=== PATIENT | male | born 1975 | race Hispanic/Latino ===

== ENCOUNTER 2016-08-16 05:21 | Emergency (ER) | payer SELFPAY ==
[~2016-08-16] VITALS: Ht 182.9 cm; Wt 82.6 kg
[~2016-08-16 05:21] MED LIST: FLEXERIL10 MG PO; LIPITOR20 MG PO; MOTRIN600 MG PO; ULTRAM50 MG PO; VICODIN 5-3001 EACH PO
[2016-08-16] MEDS ORDERED: MOTRIN400 MG PO (06:11)
[2016-08-16] MEDS ORDERED: ULTRAM50 MG PO (06:11)
[2016-08-16] MEDS ORDERED: FLEXERIL10 MG PO (06:11)
[2016-08-16 06:29] VITALS: BP 139/83
== END 2016-08-16 06:30 | disposition home or self-care (01) ==
LOC: EME 05:21
DX: M54.5 Low back pain (principal); Z72.0 Tobacco use; E78.5 Hyperlipidemia, unspecified
CPT/HCPCS: 99281; 99283

== ENCOUNTER 2017-07-26 13:51 | Emergency (ER) | payer OTHER ==
[~2017-07-26] VITALS: Ht 182.9 cm; Wt 88.6 kg
[~2017-07-26 13:51] MED LIST changes: +MOTRIN400 MG PO
[2017-07-26 15:08] LABS: CHLORIDE 105 mEq/L (99-109); MCH 24.1 PG (29.0-34.0); MCHC 33.3 G/DL (30.0-36.0); MCV 72.2 FL (86-99); POTASSIUM 3.9 mEq/L (3.7-5.4); RBC DIS.WIDTH-CV 13.9 % (11.8-14.6); RBC DIS.WIDTH-SD 35.7 % (39-53); RED BLOOD COUNT 5.82 M/uL (4.00-5.50); SODIUM 139 mEq/L (136-147); WHITE BLOOD COUNT 7.8 K/uL (4.1-10.2)
[2017-07-26 15:09] LABS: GLUCOSE 84 mg/dL (70-99)
[2017-07-26 15:13] LABS: CREATININE 0.9 mg/dL (0.6-1.3); GFR ESTIMATE (CALCULATED) > 59 mL/min/ (58.99-99999)
[2017-07-26 15:14] LABS: UREA NITROGEN (BUN) 14 mg/dL (9-23)
[2017-07-26 15:17] LABS: TROP-I INTERPRETATION NEGATIVE; TROPONIN-I < 0.01 ng/mL (0.0-0.30)
[2017-07-26] MEDS ORDERED: SYNTHROID25 MCG PO (15:25)
[2017-07-26 15:45] LABS: HEMATOLOGY COMMENT 1 SN; PLAT.SUFFICIENCY ADEQUATE; PLATELET COUNT 206 K/uL (156-360)
[2017-07-26 18:39] LABS: TROP-I INTERPRETATION NEGATIVE; TROPONIN-I < 0.01 ng/mL (0.0-0.30)
[2017-07-26 18:41] VITALS: BP 142/73
== END 2017-07-26 19:00 | disposition home or self-care (01) ==
LOC: EME 13:51
PROVIDERS: Physician Assistant
DX: R07.89 Other chest pain (principal); R94.31 Abnormal electrocardiogram [ECG] [EKG]; E78.5 Hyperlipidemia, unspecified; E03.9 Hypothyroidism, unspecified; F17.200 Nicotine dependence, unspecified, uncomplicated; Z82.49 Family history of ischemic heart disease and other diseases of the circulatory system
CPT/HCPCS: 71046; 80048; 84484; 85027; 93005; 99281; 99284